=== PATIENT | female | born 1990 | race Two or more races ===

== ENCOUNTER 2022-08-28 10:12 | Day surgery (SDC) | payer OTHER ==
[2022-08-21 15:20] VITALS: BMI 22.7
[2022-08-28 12:11] VITALS: TEMP 97.5
[2022-08-28 12:33] VITALS: PULSE 80; RESP 18
[2022-08-28 13:10] VITALS: BP 100/60
== END 2022-08-28 13:10 | disposition home or self-care (01) ==
LOC: FASU-ENDO 10:12
PROVIDERS: ATTEND Internal Medicine Gastroenterology
PROC: 0DBL8ZX Excision of Transverse Colon, Via Natural or Artificial Opening Endoscopic, Diagnostic (ICD-10-PCS; 2022-08-28)
PROC: 0DBP8ZX Excision of Rectum, Via Natural or Artificial Opening Endoscopic, Diagnostic (ICD-10-PCS; 2022-08-28)
PROC: 0DBM8ZX Excision of Descending Colon, Via Natural or Artificial Opening Endoscopic, Diagnostic (ICD-10-PCS; 2022-08-28)
PROC: 0DBK8ZX Excision of Ascending Colon, Via Natural or Artificial Opening Endoscopic, Diagnostic (ICD-10-PCS; principal; 2022-08-28 11:16)
DX: D12.3 Benign neoplasm of transverse colon (principal); K63.89 Other specified diseases of intestine; R19.7 Diarrhea, unspecified; K64.1 Second degree hemorrhoids
CPT/HCPCS: 84703; 88305-TC